=== PATIENT | female | born 1945 | race African-American/Black ===

== ENCOUNTER 2021-02-13 13:45 | Inpatient (IN) | payer MEDICAID ==
[~2021-02-13] VITALS: Ht 158.8 cm; Wt 100.4 kg
[2021-02-13] MEDS ORDERED: ONDANSETRON HCL 4MG/2ML INJ IV STA (14:23)
[2021-02-13 14:53] LABS: BASOPHILS % 0.3 % (0.0-2.0); EOSINOPHILS % 0.1 % (0.0-5.0); HEMATOCRIT. 41.6 % (36.0-48.0); HEMOGLOBIN. 13.7 g/dL (12.0-16.0); LYMPHOCYTES % 7.4 % (20.0-50.0); MEAN CORPUSCULAR HEMOGLOBIN 30.4 pg (28.0-32.0); MEAN CORPUSCULAR VOLUME 92.4 fL (81.0-99.0); MEAN PLATELET VOLUME 9.4 fl (7.4-10.4); MONOCYTES % 8.3 % (2.0-8.0); NEUTROPHILS % 83.9 % (40.0-76.0); PLATELET 221 x1000/uL (130-400); RED BLOOD CELL COUNT 4.49 mill/uL (4.2-5.4); RED CELL DISTRIBUTION WIDTH 15.3 % (11.6-14.6)
[2021-02-13 14:54] LABS: CHLORIDE 106 mEq/L (98-107)
[2021-02-13 14:57] LABS: INR 1.1; PROTHROMBIN TIME 11.4 sec (9.6-11.0)
[2021-02-13] MEDS ORDERED: MORPHINE SULFATE 4 MG/ML CPJ (NOT FOR IM USE) IV ONE (17:00)
[2021-02-13] MEDS ORDERED: KETOROLAC 15MG/ML VIAL IV NR (17:30)
[2021-02-13] MEDS ORDERED: IPRATROPIUM/ALBUTEROL 0.5-3(2.5)MG/3ML NEB HHN PRN (21:15)
[2021-02-13] MEDS ORDERED: DIPHENHYDRAMINE 50MG/ML VIAL IV PRN (21:15)
[2021-02-13] MEDS ORDERED: MORPHINE SULFATE 2 MG/ML CPJ (NOT FOR IM USE) IV PRN (21:15)
[2021-02-13] MEDS ORDERED: ONDANSETRON HCL 4MG/2ML INJ IV PRN (21:15)
[2021-02-13] MEDS ORDERED: PIPERACILLIN/TAZOBACTAM 3.375 G in DEXTROSE 5% WATER 50 ML IV SCH (22:00)
[2021-02-13 22:40] VITALS: BP 148/66
[2021-02-14] VITALS: BP 147/61
[2021-02-14] MEDS ORDERED: PIPERACILLIN/TAZOBACTAM 3.375 G in DEXTROSE 5% WATER 50 ML IV SCH
[2021-02-14] MEDS ORDERED: ERGO1250 (00:18)
[2021-02-14] MEDS ORDERED: AMLO5TAB88 MT (00:18)
[2021-02-14] MEDS ORDERED: METO-539 MT (00:18)
[2021-02-14] MEDS ORDERED: FLUT100B INH (00:18)
[2021-02-14] MEDS ORDERED: ATOR10TA69 PO (00:18)
[2021-02-14] MEDS ORDERED: ALLO300T2 MT (00:18)
[2021-02-14] MEDS ORDERED: FURO40TA5 MT (00:18)
[2021-02-14] MEDS: PIPERACILLIN/TAZOBACTAM 3.375G in DEXT 5% WATER 50ML IV SCH ×4 (00:31→21:13)
[2021-02-14] MEDS: SODIUM CHLORIDE 0.9% 1,000 ML IV SCH ×3 (00:33→16:50)
[2021-02-14 04:00] VITALS: BP 149/65
[2021-02-14 06:22] LABS: BASOPHILS % 0.2 % (0.0-2.0); EOSINOPHILS % 0.3 % (0.0-5.0); HEMATOCRIT. 38.2 % (36.0-48.0); HEMOGLOBIN. 12.1 g/dL (12.0-16.0); LYMPHOCYTES % 8.9 % (20.0-50.0); MEAN CORPUSCULAR HEMOGLOBIN 29.6 pg (28.0-32.0); MEAN CORPUSCULAR VOLUME 93.4 fL (81.0-99.0); MEAN PLATELET VOLUME 9.6 fl (7.4-10.4); MONOCYTES % 11.5 % (2.0-8.0); NEUTROPHILS % 79.1 % (40.0-76.0); PLATELET 170 x1000/uL (130-400); RED BLOOD CELL COUNT 4.09 mill/uL (4.2-5.4); RED CELL DISTRIBUTION WIDTH 15.1 % (11.6-14.6)
[2021-02-14 06:27] LABS: CHLORIDE 106 mEq/L (98-107)
[2021-02-14 06:36] LABS: LDL CHOLESTEROL 114 mg/dL (5-100)
[2021-02-14 06:38] LABS: HDL CHOLESTEROL 48 mg/dL (40-59)
[2021-02-14 08:00] VITALS: BP 146/78
[2021-02-14 10:11] LABS: CLARITY URINE CLEAR (CLEAR); COLOR URINE YELLOW (YELLOW); KETONES URINE TRACE (NEGATIVE); LEUKOCYTE ESTERASE URINE 2+ (NEGATIVE); NITRITE URINE NEGATIVE (NEGATIVE); OCCULT BLOOD URINE NEGATIVE (NEGATIVE); PH URINE 5.5 (4.5-8.0); PROTEIN URINE NEGATIVE (NEGATIVE); SPECIFIC GRAVITY URINE 1.015 (1.005-1.030); UROBILINOGEN URINE 0.2 E.U./dL (0.2-1.0)
[2021-02-14 12:00] VITALS: BP 98/56
[2021-02-14 16:00] VITALS: BP 119/65
[2021-02-14] MEDS: AMLODIPINE 5MG TABLET PO SCH (16:44)
[2021-02-14] MEDS: FUROSEMIDE 40MG TABLET PO SCH (16:49)
[2021-02-14] MEDS: METOPROLOL TARTRATE 50MG TABLET PO SCH (16:50)
[2021-02-14 20:00] VITALS: BP 134/60
[2021-02-15] VITALS: BP 155/51
[2021-02-15 04:00] VITALS: BP 159/56
[2021-02-15] MEDS: PIPERACILLIN/TAZOBACTAM 3.375G in DEXT 5% WATER 50ML IV SCH ×3 (06:13→21:33)
[2021-02-15] MEDS: FUROSEMIDE 40MG TABLET PO SCH ×2 (06:13→18:08)
[2021-02-15] MEDS: SODIUM CHLORIDE 0.9% 1,000 ML IV SCH ×3 (06:14→22:32)
[2021-02-15 08:00] VITALS: BP 167/52
[2021-02-15] MEDS: AMLODIPINE 5MG TABLET PO SCH (09:21)
[2021-02-15] MEDS: ALLOPURINOL 300 MG TABLET PO SCH (09:22)
[2021-02-15] MEDS: ATORVASTATIN CALCIUM 10MG TABLET PO SCH (09:22)
[2021-02-15] MEDS: METOPROLOL TARTRATE 50MG TABLET PO SCH ×2 (09:23→21:33)
[2021-02-15 12:00] VITALS: BP 134/55
[2021-02-15 16:00] VITALS: BP 140/49
[2021-02-15 20:00] VITALS: BP 146/59
[2021-02-16 00:23] VITALS: BP 142/44
[2021-02-16 04:00] VITALS: BP 151/44
[2021-02-16] MEDS: PIPERACILLIN/TAZOBACTAM 3.375G in DEXT 5% WATER 50ML IV SCH ×2 (06:13→13:31)
[2021-02-16] MEDS: FUROSEMIDE 40MG TABLET PO SCH ×2 (06:16→17:07)
[2021-02-16 08:00] VITALS: BP 136/69
[2021-02-16] MEDS: METOPROLOL TARTRATE 50MG TABLET PO SCH ×2 (09:00→12:23)
[2021-02-16] MEDS: ATORVASTATIN CALCIUM 10MG TABLET PO SCH (09:37)
[2021-02-16] MEDS: AMLODIPINE 5MG TABLET PO SCH (09:38)
[2021-02-16] MEDS: ALLOPURINOL 300 MG TABLET PO SCH (09:38)
[2021-02-16] MEDS: SODIUM CHLORIDE 0.9% 1,000 ML IV SCH (09:40)
[2021-02-16 12:00] VITALS: BP 165/66
[2021-02-16 16:00] VITALS: BP 132/48
[2021-02-16] MEDS ORDERED: ATOR40TA70 MT (18:08)
[2021-02-16] MEDS ORDERED: LEVO500T89 MT (18:08)
[2021-02-16 18:47] VITALS: BP 132/48
== END 2021-02-16 20:25 | disposition home or self-care (01) | DRG 254 ==
LOC: ER 13:45 → MICUSO 17:00 → ENRESERV 20:29 → 8WST 20:38
PROVIDERS: ADMIT Internal Medicine; ATTEND Internal Medicine
DX: K40.30 Unilateral inguinal hernia, with obstruction, without gangrene, not specified as recurrent (principal); K56.609 Unspecified intestinal obstruction, unspecified as to partial versus complete obstruction; K41.30 Unilateral femoral hernia, with obstruction, without gangrene, not specified as recurrent; E87.6 Hypokalemia; I10 Essential (primary) hypertension; J45.909 Unspecified asthma, uncomplicated; N39.0 Urinary tract infection, site not specified; I25.10 Atherosclerotic heart disease of native coronary artery without angina pectoris
CPT/HCPCS: 36415; 74176; 80053; 80061; 81003; 84443; 85025; 87077; 87186; 93005; 93970; 99291; C1893; J1885; J2405; J2543; J7030; J7060

== ENCOUNTER 2023-03-15 21:33 | Emergency (ER) | payer MEDICAID ==
[~2023-03-15] VITALS: Ht 157.5 cm; Wt 92.6 kg
[~2023-03-15 21:33] MED LIST: ALLO300T2 MT; AMLO5TAB88 MT; ATOR40TA70 MT; ERGO1250; FLUT100B INH; FURO40TA5 MT; LEVO-65 MT; METO-539 MT
[2023-03-15 21:39] VITALS: O2SAT 100
[2023-03-15] MEDS ORDERED: HYDROCODONE/ACETAMINOPHEN 5/325MG TABLET PO STA (21:45)
[2023-03-15] MEDS ORDERED: VANCOMYCIN 1G PREMIX 200 ML IV SCH (21:45)
[2023-03-15 22:51] LABS: HEMATOCRIT. 33.4 % (36.0-48.0); HEMOGLOBIN. 10.5 g/dL (12.0-16.0); MEAN CORPUSCULAR HEMOGLOBIN 28.8 pg (28.0-32.0); MEAN CORPUSCULAR HGB CONC 31.4 g/dL (31.0-37.0); MEAN CORPUSCULAR VOLUME 91.7 fL (81.0-99.0); MEAN PLATELET VOLUME 10.4 fl (7.4-10.4); PLATELET 188 x1000/uL (130-400); RED BLOOD CELL COUNT 3.64 mill/uL (4.2-5.4); RED CELL DISTRIBUTION WIDTH 16.2 % (11.6-14.6); WHITE BLOOD COUNT 14.7 x1000/uL (4.5-11.0)
[2023-03-15 22:55] LABS: DIFFERENTIAL COMMENT 1
[2023-03-15 22:59] LABS: CHLORIDE 102 mEq/L (98-107); INDEX HEMOLYSI 1 (1-3); INDEX ICTERIC 1 (1-4); INDEX LIPEMIC 1 (1-3); POTASSIUM 4.7 mEq/L (3.5-5.1); SODIUM 135 mEq/L (136-145)
[2023-03-15 23:10] LABS: ALANINE AMINOTRANSFERASE 114 IU/L (13-61); ALBUMIN 3.1 g/dL (3.4-5.0); ASPARTATE AMINOTRANSFERASE 120 IU/L (15-37); BILIRUBIN TOTAL 0.4 mg/dL (0.1-1.0); CALCIUM 9.5 mg/dL (8.5-10.1); CARBON DIOXIDE 20 mEq/L (21-32); CREATININE 3.4 mg/dL (0.6-1.3); GLUCOSE 137 mg/dL (70-105); PROTEIN TOTAL 8.1 g/dL (6.0-8.3); TROPONIN I HIGH SENSITIVITY 16 ng/L (<54)
[2023-03-15 23:17] LABS: ANISOCYTOSIS 1+; PLATELET ESTIMATE NORMAL
[2023-03-15 23:20] LABS: LACTIC ACID 2.1 mmol/L (0.4-2.0)
[2023-03-15 23:21] LABS: UREA NITROGEN BLOOD 89 mg/dL (7-21)
[2023-03-16] MEDS ORDERED: HYDROCODONE/ACETAMINOPHEN 5/325MG TABLET PO NR (00:45)
[2023-03-16] MEDS ORDERED: PIPERACILLIN/TAZOBACTAM 3.375GM/50ML PREMIX IV ONE (00:45)
[2023-03-16] MEDS ORDERED: PIPERACILLIN/TAZ 3.375G PREMIX 50 ML IV NR (00:45)
[2023-03-16] MEDS ORDERED: SODIUM CHLORIDE 0.9% 1,000 ML IV ONE (00:45)
[2023-03-16 00:49] LABS: TROPONIN I HIGH SENSITIVITY 17 ng/L (<54)
[2023-03-16 07:15] LABS: CLARITY URINE CLOUDY (CLEAR); COLOR URINE YELLOW (YELLOW); GLUCOSE URINE NEGATIVE (NEGATIVE); KETONES URINE NEGATIVE (NEGATIVE); LEUKOCYTE ESTERASE URINE 3+ (NEGATIVE); NITRITE URINE NEGATIVE (NEGATIVE); OCCULT BLOOD URINE 3+ (NEGATIVE); PROTEIN URINE TRACE (NEGATIVE); SPECIFIC GRAVITY URINE 1.013 (1.005-1.030); UROBILINOGEN URINE 0.2 E.U./dL (0.2-1.0)
[2023-03-16 08:05] LABS: SQUAMOUS EPITHELIAL CELL URINE 1+ /lpf (RARE/1+)
[2023-03-16 08:07] LABS: BACTERIA URINE TRACE; RBC URINE 0-2 /hpf (0-2)
[2023-03-16 08:30] VITALS: TEMP 96.5
[2023-03-16 10:41] VITALS: BP 98/43; PULSE 77; RESP 16
== END 2023-03-16 10:59 | disposition short-term general hospital (02) ==
LOC: ER 21:33
DX: A41.9 Sepsis, unspecified organism (principal); L03.119 Cellulitis of unspecified part of limb; J45.909 Unspecified asthma, uncomplicated; I11.9 Hypertensive heart disease without heart failure; Z91.010 Allergy to peanuts; Z91.013 Allergy to seafood; Z91.018 Allergy to other foods
CPT/HCPCS: 80053; 83605 ×2; 83690; 85025; 86850; 86900; 86901; 87040; 84484 ×2; 36415; 84145; 71045; 74176; 99285; 81003; 96367; 96365; J2543; J3370; J7030; Z7610 ×2; C1893

== ENCOUNTER 2023-04-18 21:50 | Emergency (ER) | payer MEDICAID ==
[~2023-04-18] VITALS: Ht 165.1 cm; Wt 160.0 kg
[2023-04-18 21:51] VITALS: O2SAT 98
[2023-04-18] MEDS ORDERED: KETOROLAC 30MG/ML VIAL IM ONE (22:45)
[2023-04-19 01:25] LABS: HEMATOCRIT. 24.9 % (36.0-48.0); HEMOGLOBIN. 7.9 g/dL (12.0-16.0); MEAN CORPUSCULAR HEMOGLOBIN 28.6 pg (28.0-32.0); MEAN CORPUSCULAR HGB CONC 31.9 g/dL (31.0-37.0); MEAN CORPUSCULAR VOLUME 89.8 fL (81.0-99.0); PLATELET 183 x1000/uL (130-400); RED BLOOD CELL COUNT 2.77 mill/uL (4.2-5.4); RED CELL DISTRIBUTION WIDTH 15.7 % (11.6-14.6); WHITE BLOOD COUNT 9.3 x1000/uL (4.5-11.0)
[2023-04-19 01:40] LABS: ALANINE AMINOTRANSFERASE 9 IU/L (10-49); ASPARTATE AMINOTRANSFERASE 15 IU/L (<34); BILIRUBIN TOTAL 0.5 mg/dL (0.1-1.0); CALCIUM 8.2 mg/dL (8.7-10.4); CARBON DIOXIDE 20 mEq/L (21-32); CHLORIDE 100 mEq/L (98-107); GLUCOSE 97 mg/dL (70-105); POTASSIUM 5.4 mEq/L (3.5-5.1); SODIUM 131 mEq/L (136-145)
[2023-04-19 01:43] LABS: PROTEIN TOTAL 5.2 g/dL (6.0-8.3)
[2023-04-19 01:47] LABS: DIFFERENTIAL COMMENT 1
[2023-04-19 02:10] LABS: CREATININE 8.7 mg/dL (0.6-1.0); UREA NITROGEN BLOOD 156 mg/dL (9-23)
[2023-04-19 02:15] LABS: PARTIAL THROMBOPLASTIN TIME 29.3 sec (23.4-31.0); PROTHROMBIN TIME 11.2 sec (9.6-11.0)
[2023-04-19] MEDS ORDERED: MORPHINE SULFATE 4 MG/ML CPJ (NOT FOR IM USE) IV ONE (03:45)
[2023-04-19] MEDS ORDERED: INSULIN REGULAR (HUMULIN R) 300UNITS/3ML VIAL IV ONE (04:30)
[2023-04-19] MEDS ORDERED: CALCIUM GLUCONATE 1,000 MG in DEXT 5% WATER 100 ML IV ONE (04:30)
[2023-04-19] MEDS ORDERED: SODIUM BICARBONATE 8.4% 1 MEQ/ML 50ML SYR IV ONE (04:30)
[2023-04-19] MEDS ORDERED: DEXTROSE 50% WATER 50ML SYRINGE IV ONE (04:30)
[2023-04-19] MEDS ORDERED: CALCIUM GLUCONATE 1GM PREMIX 50 ML IV NR (05:30)
[2023-04-19] MEDS ORDERED: MORPHINE SULFATE 4 MG/ML CPJ (NOT FOR IM USE) IV NR (06:00)
[2023-04-19 06:15] VITALS: PULSE 16; RESP 16
[2023-04-19] MEDS: ALBUTEROL (0.083%) 2.5MG/3ML NEB HHN SCH ×3 (06:15→07:15)
[2023-04-19 06:45] VITALS: RESP 16
[2023-04-19 07:15] VITALS: RESP 16
[2023-04-19 07:15] LABS: ANISOCYTOSIS 1+; PLATELET ESTIMATE NORMAL
[2023-04-19 14:30] VITALS: BP 104/56; PULSE 56; RESP 13; TEMP 98.4
== END 2023-04-19 14:57 | disposition short-term general hospital (02) ==
LOC: ER 21:50
DX: M79.605 Pain in left leg (principal); R06.02 Shortness of breath
CPT/HCPCS: 36415; 72170; 73560; 73610; 93970; 29515; 51702; 99285; 80053; 85025; 85610; 85730; 76770; 94640; 96374; 96375; J1885; J0610; J1815; J3490; J2270; Z7610 ×5; J7060